=== PATIENT | male | born 1970 | race Caucasian/White ===

== ENCOUNTER → 2024-04-12 08:09 | Outpatient (REF) | payer BC, SELFPAY ==
[2024-04-12 10:05] LABS: % Basophils 0.9 % (0-2); % Eosinophils 5.5 % (0-6); % Immature Granulocytes 0.2 % (0-0.5); % Monocytes 9.4 % (1.7-9.3); Absolute Basophils 0.1 10^3/uL (0-0.2); Absolute Eosinophils 0.5 10^3/uL (0-0.7); Absolute Lymphocytes 2.2 10^3/uL (1.2-3.4); Absolute Monocytes 0.8 10^3/uL (0.1-0.6); Hematocrit 42.3 % (39.0-52.0); Hemoglobin 14.5 g/dL (13.0-18.0); Mean Corp Hgb Conc. 34.3 g/dL (33.0-37.0); Mean Corpuscular Hgb 30.3 pg (27.0-31.0); Mean Corpuscular Volume 88.3 fL (80.0-94.0); Nucleated Red Blood Cells % 0 % (-); Platelet Count 238 10^3/uL (130-400); Red Blood Cell Count 4.79 10^6/uL (4.70-6.10); Red Cell Dist. Width 12.5 % (11.5-14.5); White Blood Cell Count 8.6 10^3/uL (4.8-10.8)
[2024-04-12 10:25] LABS: ALT (SGPT) 39 U/L (0-50); AST (SGOT) 31 U/L (17-59); Albumin 3.8 g/dl (3.5-5.0); Alkaline Phosphatase 103 U/L (38-126); Blood Urea Nitrogen 13 mg/dl (9-20); Calcium 8.8 mg/dl (8.4-10.2); Carbon Dioxide 29 mmol/L (22-30); Chloride 102 mmol/L (98-107); Glucose 212 mg/dl (70-99); HDL Cholesterol 23 mg/dl; LDL Cholesterol, Calculated 55 mg/dl; Potassium 4.3 mmol/L (3.5-5.1); Sodium 137 mmol/L (135-145); Total Bilirubin 0.5 mg/dl (0.2-1.3); Total Cholesterol 156 mg/dl (50-199); Total Protein 6.6 g/dl (6.3-8.2); Triglyceride 391 mg/dl (10-149); Very Low Density Lipoprotein 78 mg/dl (0-30); eGFR > 60.00
[2024-04-12 10:41] LABS: Vitamin D, 25-OH*** 16.7 ng/mL (30-80)
[2024-04-12 10:49] LABS: Glycohemoglobin (HgbA1c) 9.2 % (4.0-5.6)
[2024-04-12 10:56] LABS: PSA, Total - Screen 0.24 ng/ml (0.0-4.0)
[2024-04-12 12:14] LABS: Urine Albumin Trace (Neg - Trace); Urine Bilirubin Negative (Negative); Urine Character Clear (Clear); Urine Color Yellow; Urine Glucose 3+ (Negative); Urine Ketone Negative (Negative); Urine Leukocyte Negative (Negative); Urine Nitrite Negative (Negative); Urine Occult Blood Negative (Negative); Urine Urobilinogen Negative (Neg - 1+)
[2024-04-12 19:49] LABS: Hepatitis C Antibody Negative (Negative)
== END ==
LOC: HWLAB 08:09
PROVIDERS: ATTENDING PHYSICIAN Family Medicine
DX: Z11.59 Encounter for screening for other viral diseases (principal); Z00.01 Encounter for general adult medical examination with abnormal findings; Z86.39 Personal history of other endocrine, nutritional and metabolic disease; Z12.5 Encounter for screening for malignant neoplasm of prostate
CPT/HCPCS: 36415; 80053; 80061; 81003; 82306; 83036; 84443; 85025; 86803; G0103

== ENCOUNTER 2024-12-07 15:12 | Inpatient (IN) | payer BC, SELFPAY ==
[2024-12-07] VITALS (14 sets, daily range): BP systolic 102–126; BP diastolic 54–74; PULSE 80; BMI 38.0; BMI 35.9
--- NOTE | 2024-12-07 10:16 | ED.GENMED ---
History of Present Illness
General
Chief Complaint: Vomiting Blood
Source: patient
Exam Limitations: none
Time Seen by Provider: 12/07/24 10:07
History of Present Illness
History of Present Illness:
54yoM with a history of type 2 diabetes presenting via EMS for evaluation of vomiting blood. Patient reports intermittent episodes of vomiting over the past several weeks. Symptoms always began with the 'sulfur burps' which is then followed by
some vomiting and diarrhea. Symptoms recurred this morning and woke him up from sleep around 3 AM. He was initially feeling better after vomiting and was able to go to work this morning. Symptoms recurred while at work and he had several
additional episodes of vomiting. He noticed dark red blood in the emesis the past 3-4 episodes. Patient had some abdominal discomfort per EMS. He denies any fevers, syncope, chest pain. Of note, patient was started on Mounjaro 8 weeks ago. No
previous abdominal surgeries.
Phy Exam
Physical Exam
Physical Exam:
Appears uncomfortable, non-toxic
General Physical Exam
General Presentation: well appearing
General Skin: warm and dry
General Habitus: normal
General Mental: alert
ENT Exam
ENT Exam: normocephalic
Cardiovascular Exam
Cardiovascular Exam: no murmur and tachycardia
Pulmonary Exam
Pulmonary Exam: lungs clear, no respiratory distress, no rales, no crackles and no rhonchi
Gastrointestinal Exam
Gastrointestinal Exam: soft, non distended and other (Mild generalized tenderness. Abdomen soft, non-distended. No rebound or guarding.)
Neurological Exam
Neurological Exam: alert
[place] Coma Scale
Eye Opening: Spontaneous
Verbal Response: Oriented
Motor Response: Obeys Commands
GCS Total Score: 15
Skin Exam
Skin Exam: normal color and warm/dry
Psychiatric Exam
Psychiatric Exam: normal mood/affect
Course
Orders/Labs/Results
Orders:
Orders
12/07/24 10:14
Electrocardiogram (*1) Urgent
Reason for Study: Abdominal Pain
EKG- Treatment ONCE
12/07/24 10:15
CT Abd/pelvis W Iv Cont Urgent
Comment:
Reason For Exam: abd pain, vomiting blood
12/07/24 10:19
Complete Blood Count/With Diff Urgent
Lactate Level [Lactic Acid] Urgent
PTT Urgent
Prothrombin Time Urgent
12/07/24 10:24
Pantoprazole [Protonix IV] 40 mg IV NOW STA
12/07/24 10:26
0.9% Sodium Chloride [Nss (Preservative Free)] 8 ml IV NOW STA
Famotidine [Pepcid] 20 mg IV NOW STA
12/07/24 10:30
0.9% Sodium Chloride 1000 ml [Nss] 1,000 ml IV BOLUS
12/07/24 11:00
0.9% Sodium Chloride [Nss (Preservative Free)] 10 ml IV ONCE ONE
12/07/24 11:09
Comprehensive Metabolic Panel Urgent
Lipase Urgent
12/07/24 13:43
Ondansetron Injectable [Zofran] 4 mg IV NOW STA
12/07/24 13:56
GASTROINTESTINAL CONSULT Routine
Consulting Provider: Behzad Addison
Was physician already notified: Yes
12/07/24 14:37
Admit/Transfer Patient As Directed
Co-Sign Provider:
Level of Care: Inpatient admission
Assign to:: Medical/Surgical
Physician / Group: Denny/hospitalist
Diagnosis: hematemesis
Reason for Hospitalization: hematemesis
Expected length of stay greater than two midnights?: Yes
ELOS- Estimated Length of Stay in days: 3
I certify the patient meets the requirements for IP care: Yes
Code Status As Directed
Resuscitation Status: Full Code
PRN Pain Medication Management As Directed
May give lesser potent ordered pain med per pt: Yes
preference::
Protocol:: Medication orders for pain may be administered in a
manner that supports deferring to patient preference
when the pt is:
- Requesting an ordered lesser potent pain medication.
Least to most potent pain medications are defined
as: acetaminophen < NSAID < tramadol < opioids
(morphine, oxycodone, hydromorphone).
- Requesting a lesser dose of the same medication IF
ORDERED.
- Requesting a less intrusive route of administration
if both routes are prescribed by the provider (PO <
IV).
Abnormal Lab Results
12/07/24 12/07/24
10:19 11:09
WBC 27.2 H 10^3/uL
(4.8-10.8)
RBC 6.14 H 10^6/uL
(4.70-6.10)
Hgb 18.4 H g/dL
(13.0-18.0)
Hct 54.9 H %
(39.0-52.0)
Abs Immat Gran (auto) 0.3 H 10^3/uL
(0-0.05)
Absolute Neuts (auto) 23.3 H 10^3/uL
(1.4-6.5)
Absolute Monos (auto) 1.7 H 10^3/uL
(0.1-0.6)
Immature Gran % 1.1 H %
(0-0.5)
Neutrophils % 85.6 H %
(42.2-75.2)
Lymphocytes % 5.8 L %
(20.5-51.1)
Glucose 162 H mg/dl
(70-99)
12/07/24 10:19
12/07/24 11:09
Vital Signs
Initial and Last Documented VS:
Initial Vital Signs
Temp Pulse Resp BP Pulse Ox
98.6 F 102 16 109/60 96
12/07/24 10:06 12/07/24 10:06 12/07/24 10:06 12/07/24 10:06 12/07/24 10:06
Last Documented Vital Signs
Temp Pulse Resp BP Pulse Ox
98.6 F 96 15 110/61 95
12/07/24 10:06 12/07/24 15:00 12/07/24 15:00 12/07/24 15:00 12/07/24 15:00
MDM/Problems Addressed
Differential Diagnosis Includes:
54yoM here with hematemesis. Intermittent vomiting episodes over the past few weeks. Hx of T2DM. Recently started on Mounjaro. HR 102. Remainder of vitals are stable. He appears uncomfortable but is nontoxic. No signs of peritonitis on abdominal
exam. Differential diagnosis includes but is not limited to: Side effect from Mounjaro, gastroparesis, gastroenteritis, gastritis, Khalida-Call tear, pancreatitis, dehydration
Initial ED plan: Check abdominal labs, lactate, coags, EKG, and CT abdomen. Patient received IV Zofran prehospital. IV Protonix, Pepcid, and fluid bolus ordered.
*EKG
Interpreted by ED Provider?: Yes
EKG Intrepretation Date: 12/07/24
Heart Rate: 103
Rate: tachycardiac
Rhythm: sinus
[place]: normal axis
Interval: normal interval
QRS Pattern: normal QRS
Ischemia: no ischemia
*Critical Care Note
Total Time (30-74mins, 75-104mins- exclusive of procedures): Not Applicable
Update Note
Update Note:
CBC is hemoconcentrated with a white count of 27 and a hemoglobin of 18.4. Lactate normal. Remainder of labs unremarkable. CT abdomen is overall unrevealing. There is distention of the stomach without evidence of obstruction. Patient continues
to be symptomatic on reassessment. Will admit for further evaluation and management.
ED Attending Note
-
Portions of this chart may have been created with voice recognition software.� Occasional wrong word or��sound alike� substitutions may have occurred due to the inherent limitations of voice recognition software.
Discharge Plan
Departure
Patient Disposition: Admit
Date of Disposition: 12/07/24
Time of Disposition: 13:44
Presentation/result/management discussed w/ accepting MD/DO: Hospitalist
Discharge Problem:
Hematemesis
Interventions
Interventions:
*Risk Screen - Suicide Last Done: 12/07/24 10:06
*General Assessment Last Done: 12/07/24 10:06
*Neglect/Abuse Screening Last Done: 12/07/24 10:06
*ED- Fall Risk Assessment Last Done: 12/07/24 10:06
*ED COVID-19 Vaccine History Last Done: 12/07/24 10:06
EF-Pmatvu-Zveqdtwjvu Assessment Last Done: 12/07/24 10:06
ED- Cardiac Assessment Last Done: 12/07/24 10:06
ED- Pulmonary Assessment Last Done: 12/07/24 10:06
[2024-12-07] MEDS: PROTONIX IV 40 MG IV ×2 (10:31→21:58)
[2024-12-07] MEDS: NSS (PRESERVATIVE FREE) 10 ML IV ×2 (10:32→21:58)
[2024-12-07] MEDS: NSS 1000 IV ×2 (10:32→21:54)
[2024-12-07] MEDS: PEPCID 20 MG IV (10:32)
[2024-12-07] MEDS: NSS (PRESERVATIVE FREE) 8 ML IV (10:32)
[2024-12-07 10:48] LABS: APTT 27.3 Sec (23.4-35.0); INR 1.02; PT 13.7 Sec (11.4-14.6)
[2024-12-07 10:50] LABS: Hematocrit 54.9 % (39.0-52.0); Hemoglobin 18.4 g/dL (13.0-18.0); Mean Corp Hgb Conc. 33.5 g/dL (33.0-37.0); Mean Corpuscular Volume 89.4 fL (80.0-94.0); Mean Platelet Volume 9.5 fL (7.4-10.4); Platelet Count 291 10^3/uL (130-400); Red Blood Cell Count 6.14 10^6/uL (4.70-6.10); Red Cell Dist. Width 12.5 % (11.5-14.5); White Blood Cell Count 27.2 10^3/uL (4.8-10.8)
[2024-12-07 10:57] LABS: Lactic Acid 1.7 mmol/L (0.7-2.0)
[2024-12-07 11:30] LABS: ALT (SGPT) 34 U/L (0-50); AST (SGOT) 25 U/L (17-59); Alkaline Phosphatase 78 U/L (38-126); Blood Urea Nitrogen 16 mg/dl (9-20); Calcium 9.6 mg/dl (8.4-10.2); Carbon Dioxide 28 mmol/L (22-30); Chloride 103 mmol/L (98-107); Estimated Creatinine Clearance 99 ml/min; Glucose 162 mg/dl (70-99); Lipase 117 U/L (23-300); Potassium 4.9 mmol/L (3.5-5.1); Sodium 138 mmol/L (135-145); Total Bilirubin 1.2 mg/dl (0.2-1.3); Total Protein 7.1 g/dl (6.3-8.2); eGFR > 60.00
[2024-12-07 11:37] LABS: % Basophils 0.6 % (0-2); % Eosinophils 0.7 % (0-6); % Immature Granulocytes 1.1 % (0-0.5); % Lymphocytes 5.8 % (20.5-51.1); % Monocytes 6.2 % (1.7-9.3); % Neutrophils 85.6 % (42.2-75.2); Absolute Basophils 0.2 10^3/uL (0-0.2); Absolute Eosinophils 0.2 10^3/uL (0-0.7); Absolute Immature Granulocytes 0.3 10^3/uL (0-0.05); Absolute Lymphocytes 1.6 10^3/uL (1.2-3.4); Absolute Monocytes 1.7 10^3/uL (0.1-0.6); Absolute Neutrophils 23.3 10^3/uL (1.4-6.5); Nucleated Red Blood Cells % 0 % (-)
[2024-12-07] MEDS: ZOFRAN 4 MG IV ×2 (13:47→21:56)
--- NOTE | 2024-12-07 14:13 | HPS.HSE ---
Family Physician
-
Family Physician: Jeff Murrell
Chief Complaint
-
Nausea, vomiting, hematemesis mild
History of Present Illness
HPI: 54 yo M with history of type 2 diabetes; p/w hematemesis. Patient reported intermittent nausea and vomiting over the past several weeks.
On day of admission, he again felt nauseous and vomited, initially felt better hence he went well, but symptom recurred at work with mild hematemesis, hence he came to the emergency room.
Apparently 2 weeks ago, his GI symptoms nausea vomiting was associated with fever x 1 episode. He has not had any fever since.
Of note, he was started with Mounjaro 8 weeks ago.
He denies to other symptoms.
Medical History
Past Medical History
Past Medical History: Reports NIDDM
Past Surgical History: Reports None
Social History
Tobacco: Smoker (15 cigarettes/week)
Alcohol: Occasional
Personal:
Living: With Family
Family History
Family History: Not pertinent
Allergies / Home Medications
Allergies reflects when Allergies were last updated in [facility].
Home Medications with original date entered in [facility]
Allergy/Medication List:
Allergies
Allergy/AdvReac Type Severity Reaction Status Date / Time
No Known Allergies Allergy Verified 12/07/24 10:17
Home Medications
calcium carbonate (Tums) 200 mg PO BIDPRN PRN GERD 12/07/24
cholecalciferol (vitamin D3) 50 mcg (2,000 unit) tablet (Vitamin D3) 50 mcg PO DAILY 12/07/24
cyanocobalamin (vitamin B-12) 1,000 mcg tablet 1,000 mcg PO DAILY 12/07/24
empagliflozin 25 mg tablet (Jardiance) 25 mg PO DAILY 12/07/24
famotidine 20 mg tablet (Pepcid) 20 mg PO DAILYPRN PRN GERD 12/07/24
therapeutic multivitamin 1 tab PO DAILY 12/07/24
tirzepatide 5 mg/0.5 mL subcutaneous pen injector (Mounjaro) 5 mg SC SA@199912/07/24
Review of Systems
-
Abdomen/GI: Reports See HPI, Abdominal Pain, Nausea and Vomiting
Physical Exam
Vital Signs
Vital Signs
Temp Pulse Resp BP Pulse Ox
37.0 C 96 16 116/69 95
12/07/24 10:06 12/07/24 13:30 12/07/24 13:30 12/07/24 12:00 12/07/24 13:30
Physical Exam
General: Well Developed, Well Nourished, No Apparent Distress, Comfortable and Conversant
HEENT: NormoCephalic, Moist mucous membranes and Atraumatic
Respiratory: Clear and Non Labored Respirations; No Accessory Resp Muscle Use
Cardiac: S1/S2 and Regular Rhythm; No Murmur or Rub
GI: Soft, Non Tender, Non Distended and Normal Bowel Sounds; No Organomegaly
Rectal: Deferred by Provider
Musculoskeletal: No Clubbing, No Cyanosis and No Edema
Skin: No Rash
Neuro: Awake and Alert
Psych: Calm and Intact Judgment/Insight
Laboratory Results
-
12/07/24 10:19
12/07/24 11:09
Laboratory Results
PT 13.7 Sec (11.4-14.6) 12/07/24 10:19
INR 1.02 12/07/24 10:19
APTT 27.3 Sec (23.4-35.0) 12/07/24 10:19
Lactic Acid 1.7 mmol/L (0.7-2.0) 12/07/24 10:19
Total Bilirubin 1.2 mg/dl (0.2-1.3) 12/07/24 11:09
AST 25 U/L (17-59) 12/07/24 11:09
ALT 34 U/L (0-50) 12/07/24 11:09
Alkaline Phosphatase 78 U/L (38-126) 12/07/24 11:09
Lipase 117 U/L (23-300) 12/07/24 11:09
Data Reviewed
-
Lab Data: Labs Reviewed by me
Impression/Plan
-
HPI: 54 yo M with history of type 2 diabetes; p/w hematemesis. Patient reported intermittent nausea and vomiting over the past several weeks.
On day of admission, he again felt nauseous and vomited, initially felt better hence he went well, but symptom recurred at work with mild hematemesis, hence he came to the emergency room.
Apparently 2 weeks ago, his GI symptoms nausea vomiting was associated with fever x 1 episode. He has not had any fever since.
Of note, he was started with Mounjaro 8 weeks ago.
He denies to other symptoms.
CT AP:
There is distention of the stomach but no evidence of obstruction. There are fluid-filled loops of small bowel which remain within normal caliber, nondilated.
There is diverticulosis but no evidence of diverticulitis
A/P:
# N/V/hematemesis suspect Khalida-Call tear
LFT/lipase WNL
CT abdomen pelvis largely unrevealing
N.p.o., continue IVF NSS
Zofran PRN for nausea/vomiting
GI CS
# hemoconcentration on admission likely from N/V
IVF,
Monitor counts
# NIDDM
Noted recently started Mounjaro 8 weeks ago.
DVT ppx: SCD
FC
Discussed with at bedside
--- NOTE | 2024-12-07 14:38 | CON.GI ---
Addendum entered and electronically signed by Rika Knapp MD 12/07/24 16:10:
I saw and examined the patient.
The [facility] TECHNICIAN's note was reviewed and I agree with the note.
Comment: This is a 54-year-old male with past medical history of type 2 diabetes who presented to the emergency room with acute onset of symptoms of nausea vomiting and diarrhea which started around 3:30 in the morning. He says that he has had
similar episodes in the past over the past 2 years where he initially starts with burps and then usually feels an urge to have a bowel movement and while he is having a bowel movement sometimes will also have projectile vomiting but 8 weeks ago he
started Mounjaro and initially was on 2.5 mg and the dose was increased about a week later to 5 mg and since then he has had more frequent episodes. He says that 2 days after he takes the Mounjaro he starts with nausea and vomiting and sometimes
diarrhea also but today after the multiple episodes he had noticed coffee-ground emesis with some blood also. He denies any chest pain or abdominal pain. Since he started the Mounjaro he has had less frequent bowel movements but prior to this he
used to have 2-3 bowel movements a day. He is never had a colonoscopy or endoscopy in the past. He says that he has had diabetes for about 5 years but he had not started treatment for it until recently with elevated HbA1c and then was started on
metformin which gave him diarrhea and then was discontinued and started on Jardiance and Mounjaro he has lost 20 pounds since he started the Mounjaro about 8 weeks ago and also he says that his hemoglobin A1c has improved on it. He does have
occasional symptoms of reflux and uses Nexium or Pepcid as needed. No rectal bleeding or melena. He also denies any fevers or chills.
Assessment and plan intermittent episodes of nausea vomiting x 2 years worsened since he started Mounjaro 8 weeks ago he most likely had underlying gastroparesis and worsened by the GLP-1 agonist. Will hold on Mounjaro for now I told him to discuss
with his PCP regarding alternative diabetic medications if he is unable to tolerate the GLP-1 agonist along with the Jardiance. Will schedule him for an endoscopy tomorrow to rule out possible reflux esophagitis or small Khalida-Call tear causing
the hematemesis after the nausea vomiting episodes. Continue the Protonix twice daily and will likely also need a gastric emptying scan as outpatient if his symptoms persist off Mounjaro. He will also need a screening colonoscopy as outpatient.
His CT on admission was negative for bowel obstruction and his LFTs and lipase were also normal he did have dehydration with hemoconcentration and is receiving IV hydration.
Original Note:
Consultation
-
Date/Time Consultation Requested: 12/07/24 1400
Date/Time Consultation Performed: 12/07/24 1430
Requesting Provider: Rosita Baldwin MD
Performing Provider: MAINOR Cain, Rika Knapp MD
Reason for Consultation: hematemesis
Medical History
Chief Complaint / HPI
Chief Complaint: nausea, vomiting,
History of Present Illness:
Pt is a 54yo with hx NIDDM presents to ER with vomiting blood. On admission noted with WBC 27.2, hbg 18.4, FBS 162 with hbgA1C 9.2 with otherwise labs. In review with patient he has had diabetes for about 5 years without treatment. Over last 2
years he admits to period of 'sulfur burps' and period of vomiting in AM larger amounts of undigested food from day prior. He admits to recent start of diabetes management. He started Metformin with noted diarrhea. About 2 months ago was placed
on Mounjaro with recent dose escalation with increase in nausea/vomiting symptoms. He now presents with several episode of vomiting then noted vomiting bloody emesis . Pt admits to hx NSAID use every couple of weeks. He has lost about 20 lbs in
last 2 months.
Pt otherwise admits to occasional GERD with occasional Pepcid or Nexium use. he denies abdominal pain, diarrhea, constipation, or rectal bleeding. No hx EGD or colonoscopy in past.
12/07/24- CT Abd/pelvis W Iv Cont
There is distention of the stomach but no evidence of obstruction. There are fluid-filled loops of small bowel which remain within normal caliber, nondilated.
There is diverticulosis but no evidence of diverticulitis
Past Medical History
Past Medical History: NIDDM
Social History
Tobacco: Smoker (1 Pack per week)
Alcohol: Occasional
Drug: None
Personal:
Living: With Family
Employment: Employed
Family History
Family History: Other (no family hx colon CA or polyps)
Allergies / Home Medications
Allergy/AdvReac Type Severity Reaction Status Date / Time
No Known Allergies Allergy Verified 12/07/24 10:17
�Medication �Instructions �Recorded
calcium carbonate (Tums) 200 mg PO BIDPRN PRN GERD 12/07/24
cholecalciferol (vitamin D3) 50 50 mcg PO DAILY 12/07/24
mcg (2,000 unit) tablet (Vitamin
D3)
cyanocobalamin (vitamin B-12) 1,000 mcg PO DAILY 12/07/24
1,000 mcg tablet
empagliflozin 25 mg tablet 25 mg PO DAILY 12/07/24
(Jardiance)
famotidine 20 mg tablet (Pepcid) 20 mg PO DAILYPRN PRN GERD 12/07/24
therapeutic multivitamin 1 tab PO DAILY 12/07/24
tirzepatide 5 mg/0.5 mL 5 mg SC SA@199912/07/24
subcutaneous pen injector
(Mounjaro)
Review of Systems
-
History Source: Patient and Family
Constitutional: Reports Weight Loss
EENT: Reports No Symptoms
Respiratory: Reports No Symptoms
Cardiac: Reports No Symptoms
Abdomen/GI: Reports Nausea and Vomiting (with hematemesis )
: Reports No Symptoms
Musculoskeletal: Reports No Symptoms
Neurological: Reports Weakness
Endocrine: Reports No Symptoms
Hematologic/Lymphatic: Reports Bleeding
Vital Signs
Temp Pulse Resp BP Pulse Ox
98.6 F 96 16 116/69 95
12/07/24 10:06 12/07/24 13:30 12/07/24 13:30 12/07/24 12:00 12/07/24 13:30
Physical Exam
Exam
General: Well Developed, Well Nourished and No Apparent Distress
HEENT: Normocephalic and Anicteric
Respiratory: Clear
Cardiac: Regular Rhythm
GI: Soft, Non Tender and Non Distended
Musculoskeletal: No Clubbing and No Cyanosis
Skin: Warm and Dry
Neuro: Awake, Alert and AO x 3
Psych: Calm
Results
WBC 27.2 10^3/uL (4.8-10.8) H 12/07/24 10:19
Hgb 18.4 g/dL (13.0-18.0) H 12/07/24 10:19
Hct 54.9 % (39.0-52.0) H 12/07/24 10:19
MCV 89.4 fL (80.0-94.0) 12/07/24 10:19
Plt Count 291 10^3/uL (130-400) 12/07/24 10:19
Absolute Neuts (auto) 23.3 10^3/uL (1.4-6.5) H 12/07/24 10:19
PT 13.7 Sec (11.4-14.6) 12/07/24 10:19
INR 1.02 12/07/24 10:19
APTT 27.3 Sec (23.4-35.0) 12/07/24 10:19
Sodium 138 mmol/L (135-145) 12/07/24 11:09
Potassium 4.9 mmol/L (3.5-5.1) 12/07/24 11:09
Chloride 103 mmol/L (98-107) 12/07/24 11:09
Carbon Dioxide 28 mmol/L (22-30) 12/07/24 11:09
BUN 16 mg/dl (9-20) 12/07/24 11:09
Creatinine 0.9 mg/dL (0.7-1.3) 12/07/24 11:09
Calcium 9.6 mg/dl (8.4-10.2) 12/07/24 11:09
Total Bilirubin 1.2 mg/dl (0.2-1.3) 12/07/24 11:09
AST 25 U/L (17-59) 12/07/24 11:09
ALT 34 U/L (0-50) 12/07/24 11:09
Alkaline Phosphatase 78 U/L (38-126) 12/07/24 11:09
Lipase 117 U/L (23-300) 12/07/24 11:09
Diagnostic Image Results:
12/07/24- CT Abd/pelvis W Iv Cont
There is distention of the stomach but no evidence of obstruction. There are fluid-filled loops of small bowel which remain within normal caliber, nondilated.
There is diverticulosis but no evidence of diverticulitis
Prior GI Procedures:
EGD: none
Colonoscopy: none
Assessment / Plan
-
Pt is a 54yo with hx NIDDM presents to ER with vomiting blood. On admission noted with WBC 27.2, hbg 18.4, FBS 162 with hbgA1C 9.2 with otherwise labs. In review with patient he has had diabetes for about 5 years without treatment. Over last 2
years he admits to period of 'sulfur burps' and period of vomiting in AM larger amounts of undigested food from day prior. He admits to recent start of diabetes management. He started Metformin with noted diarrhea. About 2 months ago was placed
on Mounjaro with recent dose escalation with increase in nausea/vomiting symptoms. He now presents with several episode of vomiting then noted vomiting bloody emesis . Pt admits to hx NSAID use every couple of weeks. He has lost about 20 lbs in
last 2 months.
12/07/24- CT Abd/pelvis W Iv Cont
There is distention of the stomach but no evidence of obstruction. There are fluid-filled loops of small bowel which remain within normal caliber, nondilated.
There is diverticulosis but no evidence of diverticulitis
-nausea/vomiting with hematemesis
-recurrent episodes of nausea/vomiting
-CT with stomach distention
-NIDDM with poor control HBG A1C 9.2
-recent start of Mounjaro with 20 lbs wt loss
PLAN:
Etiology of symptoms with concern for underlying gastroparesis now with worsening symptom with use of Mounjaro
hematemesis related to MW tear vs other -- pt with occasional NSAID use - PUD in differential
plan for EGD in AM
cont PPI
ok for clear dinner then NPO after dinner
Educated pt and family on gastroparesis
stressed need for good control of diabetes and may take time for symptoms to improve
medical team to eval for continuing Mounjaro as may not be tolerating with nausea/vomiting symptoms
consider formal OP gastric emptying study
OP colonoscopy when improved from nausea/vomiting symptoms
-
-
Thank you for consultation and allowing me to participate in the patient's care. Please call the web production manager GI physician during the after hours with any questions or concerns.
--- NOTE | 2024-12-07 22:23 | PTCARENOTE ---
Patient arrived from ED, AAO x 4. VSS. Patient denies pain. Patient with nausea--PRN Zofran administered and scheduled, IV Protonix administered. IV fluids initiated, NSS @ 100 ml/hr. Patient educated on diet, including NPO status, at midnight, in
anticipation of an EGD tomorrow. Skin CDI with various tattoos. OOB with no assistance yet, patient educated on importance of utilizing his call mcduffie, prior to getting out of bed while in the hospital. Patient agreeable. Patient oriented to the
room. Oral hygiene promoted. Bed in lowest position. Call mcduffie within reach. All patient needs met at this time.
[2024-12-08] VITALS (9 sets, daily range): BP systolic 100–121; BP diastolic 52–68
[2024-12-08] MEDS: NSS 1000 IV (07:49)
[2024-12-08] MEDS: NSS (PRESERVATIVE FREE) 10 ML IV (07:50)
[2024-12-08] MEDS: PROTONIX IV 40 MG IV (07:50)
[2024-12-08 09:11] LABS: Hematocrit 46.3 % (39.0-52.0); Hemoglobin 15.4 g/dL (13.0-18.0); Mean Corp Hgb Conc. 33.3 g/dL (33.0-37.0); Mean Corpuscular Hgb 30.1 pg (27.0-31.0); Mean Corpuscular Volume 90.4 fL (80.0-94.0); Mean Platelet Volume 9.7 fL (7.4-10.4); Platelet Count 248 10^3/uL (130-400); Red Blood Cell Count 5.12 10^6/uL (4.70-6.10); Red Cell Dist. Width 12.6 % (11.5-14.5); White Blood Cell Count 9.9 10^3/uL (4.8-10.8)
--- NOTE | 2024-12-08 09:16 | W.PN.UPDATE ---
Update Note
Progress Note Update
EGD done
Normal exam
No bleeding
REC:
Resume ADA diet
Probable evangelina barrera tear that resolved
OK for d/c
Protonix daily
Will sign off
[2024-12-08 09:22] LABS: Blood Urea Nitrogen 13 mg/dl (9-20); Carbon Dioxide 27 mmol/L (22-30); Chloride 103 mmol/L (98-107); Estimated Creatinine Clearance 108 ml/min; Glucose 101 mg/dl (70-99); Magnesium 1.8 mg/dl (1.6-2.3); Potassium 4.3 mmol/L (3.5-5.1); Sodium 138 mmol/L (135-145); eGFR > 60.00
--- NOTE | 2024-12-08 09:31 | W.PN.HOSP.TC ---
Addendum entered and electronically signed by Rosita Baldwin MD 12/08/24 14:37:
total DC time 38 min
Original Note:
Today's Communication/Plan
-
see A/P
DC today
Assessment / Plan
Assessment / Plan
HPI: 54 yo M with history of type 2 diabetes; p/w hematemesis. Patient reported intermittent nausea and vomiting over the past several weeks.
On day of admission, he again felt nauseous and vomited, initially felt better hence he went well, but symptom recurred at work with mild hematemesis, hence he came to the emergency room.
Apparently 2 weeks ago, his GI symptoms nausea vomiting was associated with fever x 1 episode. He has not had any fever since.
Of note, he was started with Mounjaro 8 weeks ago.
He denies to other symptoms.
CT AP:
There is distention of the stomach but no evidence of obstruction. There are fluid-filled loops of small bowel which remain within normal caliber, nondilated.
There is diverticulosis but no evidence of diverticulitis
A/P:
# N/V/mild hematemesis 2/2 Evangelina-Call tear
LFT/lipase WNL
CT abdomen pelvis largely unrevealing
s/p EGD /5 which was normal, no bleeding. Probable evangelina call tear that resolved
restart diet and pt tolerated well
# hemoconcentration on admission likely from N/V
resolved after IVF
# NIDDM
Noted recently started Mounjaro 8 weeks ago. Advised to hold to avoid exacerbation of gastroparesis symptom
Consider other oral hypoglycemic as alternatives, discussed with pt. Pt to follow up with PCP for this.
DVT ppx: SCD
FC
DW GI
Anticipated Discharge: Today
Subjective/Interval History
-
Date of Service: December 08, 2024
Objective Data
-
Labs:
Laboratory Results
12/08/24
08:09
WBC 9.9
Hgb 15.4
Hct 46.3
Plt Count 248
Sodium 138
Potassium 4.3
Chloride 103
Carbon Dioxide 27
BUN 13
Creatinine 0.8
Glucose 101 H
Calcium 9.0
Vital Signs:
Vital Signs
Temp Pulse Resp BP Pulse Ox
36.7 C 77 16 100/60 96
12/08/24 07:44 12/08/24 07:44 12/08/24 07:44 12/08/24 07:44 12/08/24 07:44
Review of Systems
-
All other systems: Reviewed and negative
Physical Exam
-
General: Well Developed, Well Nourished, No Apparent Distress, Comfortable and Conversant; Negative Respiratory Distress
HEENT: Normocephalic, Atraumatic, Nose Appears Normal and Ears Appear Normal; Negative Oxygen
Respiratory: Clear to Auscultation and Non Labored Respirations; Negative Accessory Resp Muscle Use
Cardiac: Regular Rhythm and S1/S2
GI: Soft, Nontender, Nondistended and Normal Bowel Sounds
Skin: Warm and Dry
Neuro: Awake, Alert, Oriented, AO x 3 and Nonfocal/Grossly Intact
Psych: Calm and Intact Judgement/Insight
Data Reviewed
-
Labs: Labs Reviewed by me
[2024-12-08 09:49] LABS: Glucose - Point of Care 90 mg/dl (70-99)
--- NOTE | 2024-12-08 13:49 | CM ---
medical case manager reviewed patient's chart and met with patient and patient lives with his spouse in a 2 story home, patient is independent with adl's and ambulation, no dme, patient drives, home today no needs.
PCP: Dr. Jeff Murrell
Pharmacy: [facility] in [place]
Plan; Home no needs.
--- NOTE | 2024-12-08 14:22 | W.DCSUMMARY ---
Discharge Summary
Discharge Data
Date of Admission: 12/07/24
Date of Discharge: 12/08/24
-
Pending Results: No
Hospital Course
Principal Diagnosis:
Nausea, vomiting, suspect gastroparesis
Mild hematemesis likely due to Evangelina-Call tear
Hemoconcentration on admission from nausea and vomiting, resolved
Chronic Diagnoses:�
NIDDM. Noted recently started Mounjaro 8 weeks ago.
Consultations:�
None
Procedures:�
None
Clinical course:�
This is a 54-year-old male with past medical history of type 2 diabetes, who presented with mild hematemesis after persistent nausea and vomiting. Patient reported intermittent nausea and vomiting over the past several weeks.
Of note, he was started with Mounjaro 8 weeks prior to this admission.
Problem 1:
Nausea, vomiting, suspect due to gastroparesis.
Mild hematemesis likely due to Evangelina-Call tear.
The patient CT abdomen pelvis was largely unrevealing.
His LFT and lipase were also WNL.
He underwent EGD on 12/08 which was normal, no bleeding. Probable evangelina call tear that resolved
He has been advised to hold off on Mounjaro going forward, and to follow-up with his PCP for other oral hypoglycemic alternatives.
Problem 2:
Hemoconcentration on admission likely from N/V
This resolved after IVF.
As for the rest of his medical problems, they were stable during his hospital stay.
Discharge Plan
-
Patient Disposition: Home (Routine Discharge)
Discharge Diagnosis/Procedures: nausea/vomiting and mild hematemesis likely due to Evangelina-Call tear (EGD unrevealing);
Non-insulin dependent diabetes
Condition: Good
Diet: As tolerated and Diabetic, Carb Controlled
Activity: As tolerated
Driving Restrictions: As prior to admission
Activity Restrictions/Additional Instructions:
Consider other oral hypoglycemics for diabetes management
Referrals:
Jeff Murrell DO [Family Provider] - in less than 1 week
Prescriptions:
Continued
cyanocobalamin (vitamin B-12) 1,000 mcg Tablet
1,000 mcg PO DAILY
therapeutic multivitamin Tablet
1 tab PO DAILY
famotidine [Pepcid] 20 mg Tablet
20 mg PO DAILYPRN PRN (Reason: GERD)
calcium carbonate [Tums] 200 mg calcium (500 mg) Tablet,Chewable
200 mg PO BIDPRN PRN (Reason: GERD)
cholecalciferol (vitamin D3) [Vitamin D3] 50 mcg (2,000 unit) Tablet
50 mcg PO DAILY
Jardiance 25 mg Tablet
25 mg PO DAILY
Discontinued
Mounjaro 5 mg/0.5 mL Pen Injector
5 mg SC SA@1999
Discharge Orders:
Discharge Patient (As Directed); Ordered 12/08/24
Ordered By: Rosita Baldwin
Discharge Date and Time
Print Language: ICELANDIC
== END 2024-12-08 15:48 | disposition home or self-care (01) | DRG 73 ==
LOC: 4 WEST ACU 15:12
PROVIDERS: Physician Assistant; Specialist; ADMITTING PHYSICIAN Internal Medicine; EMERGENCY PHYSICIAN Emergency Medicine; FAMILY PHYSICIAN Family Medicine; OTHER PHYSICIAN Internal Medicine Gastroenterology
PROC: 0DJ08ZZ Inspection of Upper Intestinal Tract, Via Natural or Artificial Opening Endoscopic (ICD-10-PCS; 2024-12-08)
DX: E11.43 Type 2 diabetes mellitus with diabetic autonomic (poly)neuropathy (principal); K22.6 Gastro-esophageal laceration-hemorrhage syndrome; K31.84 Gastroparesis; K57.30 Diverticulosis of large intestine without perforation or abscess without bleeding; F17.210 Nicotine dependence, cigarettes, uncomplicated; K21.9 Gastro-esophageal reflux disease without esophagitis
CPT/HCPCS: 74177; 80048; 80053; 82962; 83605; 83690; 83735; 85025; 85027; 85610; 85730; 93005; 94660; 96361; 96374; 96375; 99285; 99406; Q9967

== ENCOUNTER 2025-02-07 06:21 | Day surgery (SDC) | payer BC, SELFPAY ==
[2025-02-07 08:23] LABS: Glucose - Point of Care 127 mg/dl (70-99)
== END 2025-02-07 10:22 | disposition home or self-care (01) ==
LOC: GI 06:21
PROVIDERS: ATTENDING PHYSICIAN Internal Medicine Gastroenterology
DX: Z12.11 Encounter for screening for malignant neoplasm of colon (principal); K64.8 Other hemorrhoids; K57.30 Diverticulosis of large intestine without perforation or abscess without bleeding; D12.5 Benign neoplasm of sigmoid colon
CPT/HCPCS: 45385; 88305; 82962